=== PATIENT | female | born 1955 | race Caucasian/White ===

== ENCOUNTER 2017-07-06 21:09 | Observation (INO) | payer SELFPAY ==
[~2017-07-06] VITALS: Ht 162.6 cm; Wt 86.2 kg
[~2017-07-06 21:09] MED LIST: AEROCHAMBER1 DEV IH; ALBUTEROL2 PUFFS/17 IN; AMOXI/CLAVULANA1 TAB PO; BACTRIM DS 8001 TAB PO; CLARITIN10 MG PO
[2017-07-06 21:11] VITALS: BP 181/100
[2017-07-06] MEDS ORDERED: NOMEDS XX (21:18)
--- OUTSIDE RECORDS SUMMARY | 2017-07-06 21:29 | External Medical Summary Rpt | CCD ---
Author Author , АННА JJ Address Unknown Phone [email or web address] Purpose Continuity of Care Document - through 2016
--- OUTSIDE RECORDS SUMMARY | 2017-07-06 21:29 | External Medical Summary Rpt | CCD ---
Author Author Conduent Organization Conduent Address Unknown Phone Unavailable Purpose Continuity of Care Document - through 2016
--- OUTSIDE RECORDS SUMMARY | 2017-07-06 21:29 | External Medical Summary Rpt | CCD ---
Demographics Preferred Language Sinhala Marital Status Unknown Caodaism Affiliation Unknown Race Unknown Ethnic Group Unknown Author Author АННА Address Unknown Phone [email or web address] Immunization No patient found.
--- OUTSIDE RECORDS SUMMARY | 2017-07-06 21:29 | External Medical Summary Rpt | CCD ---
Author Author , АННА JJ Address Unknown Phone [email or web address] Purpose Continuity of Care Document - through 2016
--- OUTSIDE RECORDS SUMMARY | 2017-07-06 21:29 | External Medical Summary Rpt | CCD ---
Demographics Preferred Language Croatian Marital Status Unknown Quaker Affiliation Unknown Race Unknown Ethnic Group Unknown Author Author АННА Address Unknown Phone [email or web address] Immunization No patient found.
[2017-07-06 21:51] LABS: HEMOGLOBIN 16.2 g/dL (12.2-16.2); LYMPH # 1.7 K/mm3 (0.7-4.5); LYMPH % 25.7 % (10-50.0)
--- NOTE | 2017-07-06 22:03 | Emergency Room Report ---
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 N Clinical Suspician of Infection? N Mental Status: 1 - Regular (Normal Baseline) Sepsis Risk:Low Sepsis Risk Have you (or family members/close friends) recently traveled outside the [place]? N If Yes, where/when: Have you had exposure to infectious disease within the past month? TB? Other? Specify: Source patient, RN notes reviewed, family, old records Exam Limitations no limitations Comment pt with sinus congestion with cough with progressive sob over the last few days - she has no hemoptysis- no chest pain Cardiac Chest Pain Chest pain indicative of cardiac No Timing/Duration this evening Severity moderate ALLERGIES Coded Allergies: miconazole (From MONISTAT 7) (Mild, 07/06/17) Home Medications Reported Medications No Home Medications (NO HOME MEDICATIONS) 1 EACH XX ONCE History Medical History General Angina: No NV: No Hypertension? No Hyperlipidemia? No COPD? No Asthma? No CVA? No Seizures? No Diabetes? No GB Disease: No MRSA? No TB? No Cancer? No Immunization Hx Ped.Immunizations UTD Yes DT/Tetanus > 10 YRS Surgical Hx Previous Surgery?Y TUBAL IVF SKIN GRAFTS Social History Smoking Hx Smoker: Current Every Day Smoker Tobacco: Yes Type Cigarettes Packs/day 1 1/2 - 2 Packs Alcohol Alcohol: No Drugs none Review of Systems All Other Systems Reviewed and Negative Constitutional denies fever Eyes denies drainage ENT denies: ear discharge, epistaxis, throat pain. Respiratory denies cough, denies shortness of breath, denies wheezing Cardiovascular denies chest pain, denies syncope Gastrointestinal see HPI, abdominal pain, nausea, denies vomiting Genitourinary denies: frequency, hesitancy, hematuria. Musculoskeletal denies back pain, denies joint pain, denies joint swelling, denies neck pain Skin denies rash Psychiatric/Neurological denies headache, denies seizure Physical Exam Vital Signs Vital Signs Date Time Temp Pulse Resp B/P Pulse O2 O2 Flow FiO2 Ox Delivery Rate 07/07 0014 18 95 2 07/07 0010 98.9 73 18 141/72 95 07/06 2245 72 20 136/83 95 2 07/06 2140 93 07/061 98.0 81 22 181/100 91 - WBC >12,000 or <4,000 or 10% bands? 2 or more SIRS Criteria Met? B/P:141/72 MAP:127 Creatinine >2.0? UA output<0.5ml/kg/hr for 2 hrs? Platelet count >100,000? Lactate >2.0mmol/1? INR >1.2 or PTT > than 60 sec? Evidence of Organ Dysfunction? Provider documented clinical suspician of infection? N Sepsis Criteria Count: 1 Sepsis Risk: Low Sepsis Risk General Appearance no apparent distress Eye Exam - bilateral eye PERRL, bilateral eye EOMI Ear, Nose, Throat normal ENT inspection Neck supple Respiratory Status No: respiratory distress. Lung Sounds bilateral: decreased breath sounds, rhonchi. 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 No Results/Orders Laboratory Tests 07/06/172147: Sodium 140, Potassium 4.1, Chloride 104, Carbon Dioxide 28, BUN 13, Creatinine 0.9, Estimated Creat Clear 67, Estimated GFR (MDRD) 63, Glucose 115 H, Calcium 9.2, Total Bilirubin 0.3, AST 14 L, ALT 16, Alkaline Phosphatase 100, Creatine Kinase 200 H, CK-MB (CK-2) Rel Index 0.5, CK and CKMB Interp 0.9, Troponin I < 0.02, Total Protein 7.8, Albumin 4.0, Globulin 3.8 H, Albumin/Globulin Ratio 1.1 07/06/172121: Lactic Acid 1.6, D-Dimer 429 *H, WBC 6.7, RBC 4.78, Hgb 16.2, Hct 47.4 H, MCV 99.2 H, RDW 12.8, Plt Count 256, MPV 9.2, Gran % 56.7, Gran # 3.8, Lymphocytes % 25.7, Monocytes % 11.7 H, Eosinophils % 4.8, Basophils % 1.0, Lymphocytes # 1.7, Monocytes # 0.8, Eosinophils # 0.3, Basophils # 0.1, PUBS MCHC 34.2, MCH 34.0 H Current Medication Orders Sig/Tino Start time Last Medication Dose Route Stop Time Status Admin Iopamidol 75 ML ONCE ONE 07/06 2345 UNV 07/06 IV 07/06 2346 2353 Sodium Chloride 10 ML PRN PRN 07/06 234 UNV 07/06 IV 07/07 0123 2353 Sodium Chloride 250 ML .STK-MED ONE 07/06 2250 DC IV Azithromycin 0 .STK-MED ONE 07/06 2249 DC IV Ceftriaxone Sodium 0 .STK-MED ONE 07/06 2237 DC IV Sodium Chloride 50 ML .STK-MED ONE 07/06 2237 DC IV Methylprednisolone 0 .STK-MED ONE 07/06 2236 DC Sodium Succinate .ROUTE Azithromycin 500 MG ONCE ONE 07/06 2230 DC 07/06 Sodium Chloride 250 ML IV 07/06 2329 2258 Ceftriaxone Sodium 1 GM ONCE ONE 07/06 2230 DC 07/06 Sodium Chloride 50 ML IV 07/06 2259 2242 Methylprednisolone 125 MG ONCE ONE 07/06 2230 DC 07/06 Sodium Succinate IV 07/06 223 2242 Albuterol/Ipratropium 3 ML ONCE ONE 07/06 2130 DC 07/06 INH 07/06 2131 213 Sodium Chloride 10 ML PRN PRN 07/06 2130 AC IV 07/07 2116 Albuterol/Ipratropium 0 .STK-MED ONE 07/06 2113 DC INH Orders Procedure Date/time Status DIET-NOTHING BY MOUTH 07/07 B Active CTA-CHEST 07/[address] CHEST W/PE PROTOCOL REQ 07/06 2314 Active D-DIMER 07/06 2203 Complete ELECTROCARDIOGRAM REQUEST 07/06 2142 Active RT REQUEST DUONEB 07/06 2117 Active ARTERIAL BLOOD GAS REQUEST 07/06 2117 Active CHEST(2 VIEWS-NOT PORTABLE) 07/06 2117 Active IV SALINE LOCK 07/06 2117 Active OXYGEN PER NURSE 07/06 2117 Active CULTURE, BLOOD 07/06 2117 Active LACTIC ACID 07/06 2117 Complete CBC WITH AUTO DIFF 07/06 2117 Complete CARDIAC ENZYMES 07/06 2117 Complete CHEM 12 PROFILE 07/06 2117 Complete 12 LEAD EKG-MAYLIN (INITIAL) 07/06 UNK Active CM/EKG CM/piece dyer Rhythm Normal Sinus Rhythm EKG non-spec. ST/Twave chgs XRAY/CT/US XRAY/CT/US 1 XRAY chest XR interpretation by reviewed by me Xray Results normal/NAD XRAY/CT/US [address] interpretation by discussed w/radiologist Time results known: 0009 CT Results normal/NAD Departure Departure Time of Disposition 0101 Disposition Still a Patient Clinical Impression Primary Impression: COPD (chronic obstructive pulmonary disease) with acute bronchitis Condition STABLE Referrals Ish Laguna MD discussed with dr laguna ED Critical Care Critical Care No at 0117
[2017-07-06 22:32] LABS: BUN 13 mg/dL (7-18)
[2017-07-06 22:34] LABS: GFR (ESTIMATED) 63 ML/MIN (59-)
[2017-07-07] VITALS (8 sets, daily range): BP systolic 135–152; BP diastolic 68–79
--- OUTSIDE RECORDS SUMMARY | 2017-07-07 01:22 | External Medical Summary Rpt | CCD ---
Author Author , АННА Organization АННА Address Unknown Phone [email or web address] Purpose Continuity of Care Document - 07-06-2017 through 2016 Results Labs Lab Lab Date Result Refere Interp Status Commen Order Detail nces retati t Range on Comprehensive metabolic panel (07-06-2017 21:48) Protein -18-2 = 7.8 6.4-8.2 complet total 017 gm/dL ed ser/ricki 21:48 s ALT 07-06-2 = 16 12-78 complet (SGPT) 017 U/L ed ser/ricki 21:48 s Serum 07-06-2 = 14 15-37 complet or 017 U/L ed plasma 21:48 asparta te aminotr ansfera Serum 07-06-2 = 140 136-145 complet sodium 017 mmoL/L ed measure 21:48 ment Serum 07-06-2 = 4.1 3.5-5.1 complet potassi 017 mmoL/L ed um 21:48 measure ment Serum 07-06-2 = 115 74-106 complet or 017 mg/dL ed plasma 21:48 glucose measure ment (mas Serum 07-06-2 = 3.8 1.3-3.2 complet globuli 017 gm/dL ed n 21:48 measure ment (mass/v olume) Estimat 07-06-2 = 63 59- complet ed 017 ML/MIN ed glomeru 21:48 lar filtrat ion rate (GF Comment: REFERENCE RANGE: >60 ML/MIN/1.73 SQUARE METERS Comment: If this patient is -Icelandic, then multiply the Comment: result by 1.210. Estimat -18-2 = 67 50-200 complet ion of 017 ML/MIN ed creatin 21:48 ine renal clearan ce Serum 07-06-2 = 0.9 0.55-1. complet or 017 mg/dL 02 ed plasma 21:48 creatin ine measure ment ( Carbon 07-06-2 = 28 21.0-32 complet dioxide 017 mmoL/L .0 ed 21:48 measure ment Serum 18-2 = 104 98-107 complet or 017 mmoL/L ed plasma 21:48 chlorid e measure ment (mo Serum 07-06-2 = 9.2 8.5-10. complet or 017 mg/dL 1 ed plasma 21:48 calcium measure ment (mas Serum 07-06-2 = 13 7-18 complet or 017 mg/dL ed plasma 21:48 urea nitroge n measure men Serum 07-06-2 = 0.3 0.2-1.0 complet or 017 mg/dL ed plasma 21:48 total bilirub in measure m Serum 07-06-2 = 100 46-116 complet or 017 U/L ed plasma 21:48 alkalin e phospha tase fermin Serum 07-06-2 = 4.0 3.4-5.0 complet or 017 gm/dL ed plasma 21:48 albumin measure ment (mas Serum 07-06-2 = 1.1 1.1-1.8 complet or 017 ed plasma 21:48 albumin /globul in mass ra Cardiac enzymes (07-06-2017 21:48) Serum 07-06-2 < 0.02 0.00-0. complet or 017 ng/mL 06 ed plasma 21:48 troponi n i.cardi ac measu Serum = 200 26-192 complet or 017 U/L ed plasma 21:48 creatin e kinase measure m Serum 2 = 0.9 0.0-3.6 complet or 017 ng/mL ed plasma 21:48 creatin e kinase MB measu Serum 2 = 0.5 0-4.0 complet or 017 U/L ed plasma 21:48 creatin e kinase MB (CK-M D-dimer (07-06-2017 21:22) D-dimer = 429 0-400 complet 017 ng/mL ed 21:22 Comment: NOTIFICATION RESULT Comment: The D-Dimer values are presented in units of mass(ng/mL) of Comment: D-Dimer units(DDU). Comment: Comment: This test has been FDA approved as an aid in the assessment Comment: and evaluation of suspected DIC, and thromboembolic events Comment: including PE and DVT. However, it does not have approval Comment: for cut-off values for the exclusion of these conditions. CBC w auto diff (07-06-2017 21:22) Blood = 6.7 4.8-10. complet leukocy 017 K/MM3 8 ed yeyo 21:22 count (number /volume ) Automat = 12.8 11.5-17 complet ed 017 % .5 ed erythro 21:22 cyte distrib ution width Red = 4.78 4.2-5.4 complet blood 017 M/mm3 ed cell 21: count Blood = 256 142-424 complet platele 017 K/mm3 ed t count 21: Automat = 9.2 7.4-10. complet ed 017 fl 4 ed blood 21: platele t mean volume fermin [place] % = 11.7 1.7-9.3 complet 017 % ed 21: Absolut = 0.8 0.1-1.0 complet e 017 K/mm3 ed monocyt 21:22 e count Automat = 99.2 82.2-97 complet ed 017 fl .8 ed erythro 21:22 cyte mean corpusc ular v Automat = 34.2 31.8-35 complet ed 017 g/dl .4 ed erythro 21:22 cyte mean corpusc ular h Mean = 34.0 27-31.2 complet corpusc 017 pg ed ular 21: hemoglo bin (MCH) determ Lymphoc = 25.7 10-50.0 complet yte 017 % ed count, 21:22 blood, automat ed Absolut = 1.7 0.7-4.5 complet e 017 K/mm3 ed lymphoc 21:22 yte count Blood = 16.2 12.2-16 complet hemoglo 017 g/dL .2 ed bin 21: measure ment (mass/v olum Blood = 47.4 37.0-47 complet hematoc 017 % .0 ed rit 21:22 (volume fractio n) Granulo = 56.7 37.0-80 complet cyte 017 % .0 ed percent 21:22 age Blood = 3.8 1.8-7.8 complet granulo 017 K/mm3 ed cytes 21:22 automat ed count (numb Automat = 4.8 % 0.1-12. complet ed 017 0 ed blood 21:22 eosinop hils/10 0 leukocy t Automat = 0.3 0.0-0.4 complet ed 017 K/mm3 ed blood 21:22 eosinop hil count Baso % = 1.0 % 0.1-2.0 complet 017 ed 21:22 Automat = 0.1 0-0.2 complet ed 017 K/MM3 ed blood 21:22 basophi l count (count/ vo Blood lactic acid measurement (moles/vol (07-06-2017 21:22) Blood = 1.6 0.4-2.0 complet lactic 017 mmol/L ed acid 21: measure ment (moles/ vol
--- OUTSIDE RECORDS SUMMARY | 2017-07-07 01:22 | External Medical Summary Rpt | CCD ---
Author Author , АННА Organization АННА Address Unknown Phone [email or web address] Purpose Continuity of Care Document - 07-06-2017 [...] SQUARE METERS Comment: If this patient is -Mongolian, then multiply the Comment: result by 1.210. [...] blood 21: platele t mean volume fermin Andrew % = 11.7 1.7-9.3 complet 017 % [...]
--- OUTSIDE RECORDS SUMMARY | 2017-07-07 01:23 | External Medical Summary Rpt | CCD ---
Demographics Preferred Language French Marital Status Unknown Worship Affiliation Unknown Race Unknown Ethnic Group Unknown Author Author АННА Address Unknown Phone [email or web address] Immunization No patient found.
--- OUTSIDE RECORDS SUMMARY | 2017-07-07 01:23 | External Medical Summary Rpt ---
Author Author АННА Singh, АННА Production Organization АННА Production Address Unknown Phone Unavailable Results Fibrin D-dimer FEU [Mass/volume] in Platelet poor plasma Observa Value Referen Units Interpr Notes Date tion ce etation Range Fibrin 0 - 400 ng/mL High Jul 06 D-dimer alert NOTIFICAT 2017 9:22 FEU ION PM [Mass/vol RESULT ume] in The Platelet D-Dimer poor values plasma are presented in units of mass(ng/m L) ofD-Dimer units(DDU ).This test has been FDA approved as an aid in the assessmen tand evaluatio n of suspected DIC, and thromboem bolic eventsinc luding PE and DVT. However, it does not have approvalf or cut-off values for the exclusion of these condition s. Lactate [Moles/volume] in Blood Observa Value Referen Units Interpr Notes Date tion ce etation Range Lactate 0.4 - 2.0 mmol/L Normal No Jul 06 [Moles/vo informati 2016 9:22 lume] in on in PM Blood source data CBC W Auto Differential panel in Blood Observa Value Referen Units Interpr Notes Date tion ce etation Range Basophils 0 - 0.2 K/MM3 Normal No Jul 06 informati 2016 9:22 [#/volume on in PM ] in source Blood by data Automated count Basophils 0.1 - 2.0 % Normal No Jul 06 informati 2016 9:22 leukocyte on in PM s in source Blood by data Automated count Eosinophi 0.0 - 0.4 K/mm3 Normal No Jul 06 ls informati 2016 9:22 [#/volume on in PM ] in source Blood by data Automated count Eosinophi 0.1 - % Normal No Jul 06 ls/100 12.0 informati 2016 9:22 leukocyte on in PM s in source Blood by data Automated count Granulocy 1.8 - 7.8 K/mm3 Normal No Jul 06 yeyo informati 2017 9:22 [#/volume on in PM ] in source Blood by data Automated count Granulocy 37.0 - % Normal No Jul 06 yeyo/100 80.0 informati 2017 9:22 leukocyte on in PM s in source Blood by data Automated count Hematocri 37.0 - % High No Jul 06 t [Volume 47.0 informati 2017 9:22 on in PM Fraction] source of Blood data Hemoglobi 12.2 - g/dL Normal No Jul 06 n 16.2 informati 2017 9:22 [Mass/vol on in PM ume] in source Blood data Lymphocyt 0.7 - 4.5 K/mm3 Normal No Jul 06 es informati 2017 9:22 [#/volume on in PM ] in source Unspecifi data ed specimen by Automated count Lymphocyt 10 - 50.0 % Normal No Jul 06 es informati 2016 9:22 [#/volume on in PM ] in source Unspecifi data ed specimen by Automated count Erythrocy 27 - 31.2 pg High No Jul 06 te mean informati 2016 9:22 corpuscul on in PM ar source hemoglobi data n [Entitic mass] Erythrocy 31.8 - g/dl Normal No Jul 06 te mean 35.4 informati 2017 9:22 corpuscul on in PM ar source hemoglobi data n concentra tion [Mass/vol ume] by Automated count Erythrocy 82.2 - fl High No Jul 06 te mean 97.8 informati 2017 9:22 corpuscul on in PM ar volume source [Entitic data volume] by Automated count Monocytes 0.1 - 1.0 K/mm3 Normal No Jul 06 informati 2016 9:22 [#/volume on in PM ] in source Blood by data Automated count Monocytes 1.7 - 9.3 % High No Jul 06 /100 informati 2017 9:22 leukocyte on in PM s in source Blood by data Automated count Platelet 7.4 - fl Normal No Jul 06 mean 10.4 informati 2017 9:22 volume on in PM [Entitic source volume] data in Blood by Automated count Platelets 142 - 424 K/mm3 Normal No Jul 06 informati 2016 9:22 [#/volume on in PM ] in source Blood data Erythrocy 4.2 - 5.4 M/mm3 Normal No Jul 06 yeyo informati 2017 9:22 [#/volume on in PM ] in source Amniotic data fluid Erythrocy 11.5 - % Normal No Jul 06 te 17.5 informati 2017 9:22 distribut on in PM ion width source [Entitic data volume] by Automated count Leukocyte 4.8 - K/MM3 Normal No Jul 06 s 10.8 informati 2017 9:22 [#/volume on in PM ] in source Blood data
--- OUTSIDE RECORDS SUMMARY | 2017-07-07 01:23 | External Medical Summary Rpt | CCD ---
Demographics Preferred Language Polish Marital Status Unknown Latter Day Affiliation Unknown Race Unknown Ethnic Group Unknown Author Author АННА Address Unknown Phone [email or web address] Immunization No patient found.
[2017-07-07 01:33] LABS: CORONAVIRUS 229E NOT DETECTED (NOT DETECTE); CORONAVIRUS HKU 1 NOT DETECTED (NOT DETECTE); CORONAVIRUS NL63 NOT DETECTED (NOT DETECTE); CORONAVIRUS OC43 NOT DETECTED (NOT DETECTE); RHINOVIRUS/ENTEROVIRUS NOT DETECTED (NOT DETECTE)
[2017-07-07] MEDS ORDERED: ASPIRIN325 M1 PO (02:27)
[2017-07-07] MEDS ORDERED: IBUPROFEN 600M600 MG PO (02:28)
--- NOTE | 2017-07-07 12:13 | PHARMACY CLINIC NOTE ---
Patient Demographics Patient Demographics Admission date: 07/07/17 Date: 07/07/17 Time: 1212 Allergies Coded Allergies: miconazole (From MONISTAT 7) (Mild, 07/06/17) HEIGHT- FT: 5 IN: 4.00 K.184 VTE General Information Labs: Laboratory Tests 07/06 2122 Hematology Hgb (12.2 - 16.2 g/dL) 16.2 Hct (37.0 - 47.0 %) 47.4 H Plt Count (142 - 424 K/mm3) 256 Disclaimer The following section includes nursing documentation that has been pulled in for pharmacy review. Patient's VTE score: 2 Patient's VTE Risk: VERY LOW RISK Clinical trial participant? No VTE prophylaxis NQF [id number] VTE prophylaxis ordered? Yes Type of prophylaxis/treatment: JOCELIN at 1212
--- NOTE | 2017-07-07 12:37 | RADIOLOGY REPORT PS360 ---
CTA-CHEST Ordering Physician: Ish Avitia MD Patient Age: 62 years: Female HISTORY: SOA chest pain cough smoker TECHNIQUE: Helical CT scanning performed through the chest following 60 cc Isovue-370 followed x 40 mL normal saline. From the thin sections thickened axial images performed. Also Sagittal & coronal thickened slab volume mipp images performed on CT workstation. 77 CPT COMPARISON :No previous FINDINGS . Pulmonary arteries appear satisfactory no evidence of pulmonary embolism. Fairly good contrast enhancement here. There is also enhancement abnormal appearing aorta, aortic arch and descending aorta. The heart is unremarkable. No mediastinal adenopathy or mass. Hilar regions unremarkable. Airway satisfactory. Small hiatal hernia noted Mild coronary calcification most evident LAD Lung dee. Mild developing emphysematous changes.. Scattered blebs most evident towards the upper lung dee Minimal scarring most likely account for appearance at the apices likely minimal nodularity towards the right apex axial image 126. Follow-up LDCT screening chest CT within one year would be encouraged particularly if patient meets criteria. Small 5 mm calcified granuloma RML not of concern Ribs appear intact. T-spine with mild degenerative changes. No acute findings T-spine. . Uppermost Abdomen.:. Small left adrenal nodule measuring ~10 mm mm. It is fairly low density on this postcontrast study which supports nonfunctioning adenoma. Partially imaged LEFT KIDNEY: 16.5 mm round well delineated intermediate density mass posterior aspect mid left kidney.[id number]. Suggest ultrasound to further evaluate at this point. Ultrasound not definitive persist, suggest follow-up CT abdomen 6 months, pre-& post contrast to further evaluate adrenals and this left renal density. &. Also follow-up Chest CT to confirm stability of minor density at the apex might be considered ....... IMPRESSION: ...... 1. No evidence of pulmonary embolism./ & Aorta unremarkable 2. . No focal pneumonia.. No acute cardiac pulmonary findings 3. COPD. Developing emphysematous changes Minimal scarring at apices most likely accounts for minor densities here.. Suggest ongoing follow-up LD CT to confirm stable 4. Small hiatal hernia noted 5..There is a incidental 1.6 cm indeterminate mass off posterior mid left kidney. Indeterminate density on this study cannot confirm cyst by CT.... Thus Recommend ultrasound to further characterize. . (Cindy. Please fax report to Adela Left renal nodule was not mentioned on the [facility] report.)
--- NOTE | 2017-07-07 14:07 | HISTORY AND PHYSICAL REPORT ---
History and Physical ([facility]) Date of admission: 07/07/17 Chief complaint: Difficulty breathing History: History of Present Illness: 62 year old female with no primary MD, last saw a physician in 2005 for a sinus infection. She presented to [facility] last night complaining of a 4 day history of upper respiratory congestion, cough and difficulty breathing. She states the symptoms progressive worsened to the point that she bagan wheezing and had trouble catching her preath. 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 She also smokes cigarettes and has a 45 pack year smoking history. Past Medical History: Medical History: CAD? No Angina: No KS: No Hypertension? No Hyperlipidemia? No CHF? No DVT? No PE? No (N) COPD? No Asthma? No Anemia? No GERD? No Gastric ulcers? No GI Bleed? No Hernia? No Thyroid Problems? No Hypothyroidism? No CVA? No Seizures? No Diabetes? No Renal Insuffiency? No UTI? No Stones? No GB Disease: No Nephritic Syndrome? No Asplenia? No Hepatitis? No Sickle Cell Disease? No Arthritis? No Migraines? No MRSA? No HIV? No TB? No Anxiety? No Depression? No Cancer? No Surgical history: Previous Surgery?Y TUBAL IVF SKIN GRAFTS Medications: Reported Medications Aspirin 325 MG PO PRN PRN PAIN IBUPROFEN MICRONIZED (IBUPROFEN 600MG) 600 MG PO PRN PRN PAIN Allergies: Coded Allergies: miconazole (From MONISTAT 7) (Mild, 07/06/17) Family History: Family history: Negative for: unknown (non contributory). Social History: Smoking Hx Tobacco: Yes Smoker: Current Every Day Smoker Type: Cigarettes Packs/day: 1 1/2 - 2 Packs Are you exposed to second hand No Alcohol: Alcohol: Yes How much do you drink 1/2 GLASS WINE 1-2 TIMES PER WEEK For how long 2-5 Years When was your last drink Greater Than 72 Hours Ago Hx of Drug Use: Drug Use? No Review of Systems: Patient unresponsive? No Constitutional No: chills, fatigue. ENT No: hearing loss. Cardiovascular No: PND, chest pain. GI No: abdominal pain, constipation, vomitting. (female) No: hematuria. Skin No: rash. Neurological No: dizziness, seizure. Eyes No: vision loss. Musculoskeletal No: extremity swelling. Psychiatric No: depression. 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 pertussis DNA (PCR) NOT DETECTED, Coronavirus OC43 (PCR) NOT DETECTED, Coronavirus HKU1 ( PCR) NOT DETECTED, Coronavirus 229E (PCR) NOT DETECTED, Coronavirus NL63 (PCR) NOT DETECTED, Human Metapneumovir PCR NOT DETECTED, Influenza A (H1) PCR NOT DETECTED, Influ A (H1N1/09) PCR NOT DETECTED, Influenza A (H3) PCR NOT DETECTED, Influenza Type A (PCR) NOT DETECTED, Influenza Type B (PCR) NOT DETECTED, M. pneumoniae (PCR) NOT DETECTED, Parainfluenza 1 (PCR) NOT DETECTED, Parainfluenza 2 (PCR) NOT DETECTED, Parainfluenza 3 (PCR) NOT DETECTED, Parainfluenza 4 (PCR) NOT DETECTED, RSV (PCR) NOT DETECTED, Entero/Rhino (PCR) NOT DETECTED 07/06/172147: Sodium 140, Potassium 4.1, Chloride 104, Carbon Dioxide 28, BUN 13, Creatinine 0.9, Estimated Creat Clear 67, Estimated GFR (MDRD) 63, Glucose 115 H, Calcium 9.2, Total Bilirubin 0.3, AST 14 L, ALT 16, Alkaline Phosphatase 100, Creatine Kinase 200 H, CK-MB (CK-2) Rel Index 0.5, CK and CKMB Interp 0.9, Troponin I < 0.02, Total Protein 7.8, Albumin 4.0, Globulin 3.8 H, Albumin/Globulin Ratio 1.1 07/06/172121: Lactic Acid 1.6, D-Dimer 429 *H, WBC 6.7, RBC 4.78, Hgb 16.2, Hct 47.4 H, MCV 99.2 H, RDW 12.8, Plt Count 256, MPV 9.2, Gran % 56.7, Gran # 3.8, Lymphocytes % 25.7, Monocytes % 11.7 H, Eosinophils % 4.8, Basophils % 1.0, Lymphocytes # 1.7, Monocytes # 0.8, Eosinophils # 0.3, Basophils # 0.1, PUBS MCHC 34.2, MCH 34.0 H Microbiology 07/06 2122 BLOOD: Anaerobic Blood Culture - RECD 07/06 2122 BLOOD: Aerobic Blood Culture - RECD 07/06 2122 BLOOD: Anaerobic Blood Culture - RECD 07/06 2122 BLOOD: Aerobic Blood Culture - RECD Radiology results: Results: CTA of chest shows no pneumonia or PE, small kidney lesion noted, probable cyst. Diagnosis(es): 1. COPD (chronic obstructive pulmonary disease) with acute bronchitis 2. Tobacco dependence Plan: Patient admitted for further treatment of her COPD exacerbation, see orders. at 1406
--- NOTE | 2017-07-07 14:20 | RADIOLOGY REPORT PS360 ---
A CHEST(2 VIEWS-NOT PORTABLE) Ordering physician: Ish Avitia MD Age: 62 years Female INDICATION: chest symptomsSOA,WHEEZING PROCEDURE: CHEST(2 VIEWS-NOT PORTABLE) FINDINGS: No previous chest studies for comparison Lungs mildly hyperexpanded. No focal pneumonia. Nothing definite acute Only note Slight coarsening central markings-could reflect bronchitis superimposed upon mild chronic changes. This most notable at right infrahilar region.. . Minor apical pleural scarring. No pneumothorax. No pleural effusion. Heart normal size. Normal pulmonary vascularity. . . Mediastinal structures appear satisfactory. Left vicky upper normal prominence but most likely reflecting generous pulmonary artery as seen on CT.. Chest wall unremarkable.. IMPRESSION ----- No focal pneumonia. Nothing definitely acute COPD/emphysema with mild chronic changes Subtle coarsening of central markings mainly reflecting chronic changes, but could reflect subtle bronchitis superimposed upon mild chronic changes..
[2017-07-08 04:21] VITALS: BP 119/65
[2017-07-08 07:13] LABS: LYMPH # 1.3 K/mm3 (0.7-4.5); LYMPH % 7.9 % (10-50.0)
[2017-07-08 07:43] LABS: HEMOGLOBIN 13.8 g/dL (12.2-16.2)
[2017-07-08 08:22] VITALS: BP 119/65; BP 133/71
[2017-07-08 08:30] VITALS: BP 133/71
--- NOTE | 2017-07-08 08:30 | ACUTE CARE PROGRESS NOTE (QUA) ---
See Addendum Progress Notes Subjective Date 07/08/17 Time 0829 Note Patient feels better, breathing better today. Objective Findings Laboratory Tests 07/08/17 0650: Sodium 145, Potassium 4.5, Chloride 111 H, Carbon Dioxide 24, BUN 13, Creatinine 0.8, Estimated Creat Clear 99, Estimated GFR (MDRD) 73, Glucose 151 H, Calcium 9.1, WBC 16.9 H, RBC 4.20, Hgb 13.8, Hct 42.2, MCV 100.6 H, RDW 13.1, Plt Count 234, MPV 9.9, Gran % 85.5 H, Gran # 14.5 H, Lymphocytes % 7.9 L, Monocytes % 6.4, Eosinophils % 0.2, Basophils % 0.1, Lymphocytes # 1.3, Monocytes # 1.1 H, Eosinophils # 0.0, Basophils # 0.0, PUBS MCHC 32.8, MCH 33.0 H Vital Signs Date Time Temp Pulse Resp B/P Pulse O2 O2 Flow FiO2 Ox Delivery Rate 07/08 0822 98.2 75 20 119/65 93 07/08 0606 93 ROOM AIR 07/08 0421 98.2 75 20 119/65 93 ROOM AIR 07/08 0325 2 07/08 0200 2 07/08 0111 2 07/08 0006 2 07/07 2300 2 07/07 2216 2 07/07 2100 2 07/07 203 98.9 88 22 140/69 95 2 07/07 2021 2 07/07 2021 98.9 88 22 140/69 95 ROOM AIR 07/07 1614 98.6 90 24 152/68 94 ROOM AIR 07/07 1143 96 OXYGEN 2 07/07 1055 2.5 07/07 1000 2.5 07/07 0856 97.5 86 20 147/72 91 2.5 07/07 0854 2.5 I&O Past 24 Hrs-ending at 0700 07/08 0700 Intake Total 1862 Output Total 2900 Balance -1038 Last VS-Temp:98.2 B/P:119/65 Pulse:75 Resp:20 SaO2:93 ROOM AIR Last weight lbs:190 oz:0 K.184 Method:Bed Scales Exam General appearance: alert, awake, no acute distress Cardiovascular: regular rate & rhythm Respiratory: clear to auscultation Assessment/Plan Problem List 1. COPD (chronic obstructive pulmonary disease) with acute bronchitis 2. Tobacco dependence This inpt stay is expected to cross 2 MNs from start of care Yes Comments: Patient improved, possible discharge later today. at 0830
[2017-07-08 09:42] LABS: NEUTROPHILS 88 % (42-76)
[2017-07-08] MEDS ORDERED: PREDNISONE 20MG20 MG PO (12:48)
[2017-07-08] MEDS ORDERED: AMOXICOT500 MG PO (12:48)
[2017-07-08 13:50] VITALS: BP 133/71
== END 2017-07-08 13:40 | disposition home or self-care (01) ==
LOC: ER 21:09 → 2ND 07-07 01:19
PROVIDERS: Emergency Medicine
DX: J20.9 Acute bronchitis, unspecified (principal); J44.0 Chronic obstructive pulmonary disease with (acute) lower respiratory infection; F17.210 Nicotine dependence, cigarettes, uncomplicated; Z88.8 Allergy status to other drugs, medicaments and biological substances
CPT/HCPCS: G0378; J0456; Q9967